=== PATIENT | female | born 1940 | race Caucasian/White ===

== ENCOUNTER → 2021-08-03 | Outpatient (CLI) | payer MEDICARE ==
[2021-08-03 09:03] LABS: BASOPHILS ABSOLUTE AUTO 0.04 K/mm3 (0.00-0.23); BASOPHILS PERCENT AUTO 0 % (0-2); EOSINOPHILS ABSOLUTE AUTO 0.05 K/mm3 (0.00-0.68); EOSINOPHILS PERCENT AUTO 0 % (0-6); Hematocrit 38.3 % (33.0-51.0); Hemoglobin 12.4 g/dL (11.5-16.0); IMMATURE GRAN ABSOLUTE AUTO 0.05 K/mm3 (0.00-0.10); IMMATURE GRAN PERCENT AUTO 0 % (0-1); LYMPHOCYTES ABSOLUTE AUTO 0.93 K/mm3 (0.84-5.20); LYMPHOCYTES PERCENT AUTO 8 % (21-46); MONOCYTES ABSOLUTE AUTO 0.95 K/mm3 (0.16-1.47); MONOCYTES PERCENT AUTO 8 % (4-13); Mean Corpuscular HGB 29.2 pg (26.0-34.0); Mean Corpuscular HGB Conc 32.4 g/dL (31.5-36.5); Mean Corpuscular Volume 90 fL (80-100); Mean Platelet Volume 9.7 fL (9.1-12.4); NEUTROPHILS PERCENT AUTO 83 % (41-73); Platelet Count 346 K/mm3 (150-400); RDW Coefficient Variation 14.3 % (11.7-14.2); RDW Standard Deviation 47.1 fL (35.1-46.3); Red Blood Cell Count 4.24 M/mm3 (3.80-5.20); White Blood Cell Count 11.92 K/mm3 (4.00-11.30)
[2021-08-03 09:18] LABS: Alanine Aminotransfer (ALT/SGP 42 U/L (12-78); Albumin, Blood 3.1 g/dL (3.4-5.0); Albumin/Globulin Ratio 0.9 (0.8-1.8); Alk Phos 98 U/L (40-126); Anion Gap 9 mmol/L (6-16); Aspartate Aminotrans (AST/SGOT 49 U/L (12-37); Bilirubin, Total 0.3 mg/dL (0.1-1.0); Blood Urea Nitrogen 16 mg/dL (8-24); Bun/Creatinine Ratio 23.5 (12.0-20.0); CO2, Blood 29 mmol/L (21-32); Calcium, Blood 9.2 mg/dL (8.5-10.1); Chloride, Blood 100 mmol/L (98-108); Creatinine, Blood 0.68 mg/dL (0.40-1.00); Globulin, Blood 3.4 g/dL (2.2-4.0); Glomerular Filtration Rate >60 (60-); Glucose, Blood 115 mg/dL (70-99); Potassium, Blood 4.6 mmol/L (3.5-5.5); Sodium, Blood 138 mmol/L (136-145); Total Protein, Blood 6.5 g/dL (6.4-8.2)
== END | disposition home or self-care (01) ==
LOC: LAB SHORT 08:58
PROVIDERS: Physician Assistant
DX: N39.0 Urinary tract infection, site not specified (principal); R32 Unspecified urinary incontinence
CPT/HCPCS: 80053; 85025; 87077; 87086; 87186

== ENCOUNTER → 2021-08-18 | Outpatient (CLI) | payer MEDICARE ==
[~2021-08-18] MED LIST: Aspir 8181 MG; CEFP200 PO; Haloperidol5 MG
== END | disposition home or self-care (01) ==
LOC: LAB SHORT 10:46
DX: N39.0 Urinary tract infection, site not specified (principal)
CPT/HCPCS: 87077; 87086; 87186

== ENCOUNTER 2021-08-21 07:13 | Emergency (ER) | payer MEDICARE ==
[~2021-08-21] VITALS: Ht 165.1 cm; Wt 52.2 kg
[2021-08-21] MEDS ORDERED: Haloperidol5 MG (07:56)
[2021-08-21] MEDS ORDERED: Aspir 8181 MG (07:57)
[2021-08-21 08:18] LABS: Source, Urine Foley catheter
[2021-08-21 08:45] LABS: Appearance, Urine Hazy (Clear); Bilirubin, Urine Neg (Neg); Blood, Urine 5+ (Neg); Glucose Qualitative, Urine Neg (Neg); Ketones, Urine Neg (Neg); Leukocyte Esterase, Urine 2+ (Neg); Nitrite, Urine Neg (Neg); Protein, Urine 4+ (Neg); Urobilinogen, Urine NORM (Normal); pH, Urine 6.5 (5.0-8.0)
[2021-08-21 08:48] LABS: Red Blood Cells, Urine TNTC /hpf (0-2); White Blood Cells, Urine 50-100 /hpf (0-5)
[2021-08-21 08:49] LABS: Bacteria Many /hpf; Mucus Light (0-Heavy); Squamous Epithelial Cells Rare /hpf (Few)
[2021-08-21 08:51] LABS: Color, Urine Red (P-Yellow)
[2021-08-21] MEDS ORDERED: CEFP200 PO (09:00)
== END 2021-08-21 09:25 | disposition home or self-care (01) ==
LOC: ER 07:13
PROVIDERS: Emergency Medicine
DX: R31.9 Hematuria, unspecified (principal); N39.0 Urinary tract infection, site not specified; F20.9 Schizophrenia, unspecified; Z79.899 Other long term (current) drug therapy; Z79.82 Long term (current) use of aspirin; Z96.0 Presence of urogenital implants
CPT/HCPCS: 81001

== ENCOUNTER 2021-09-21 15:10 | Inpatient (IN) | payer MEDICARE ==
[~2021-09-21] VITALS: Ht 165.1 cm; Wt 57.5 kg
[~2021-09-21 15:10] MED LIST changes: -Aspir 8181 MG; +Aspir 8181 MG PO; -Haloperidol5 MG; +Haloperidol5 MG PO
[2021-09-21 17:15] LABS: BASOPHILS PERCENT AUTO 1 % (0-2); EOSINOPHILS ABSOLUTE AUTO 0.18 K/mm3 (0.00-0.68); EOSINOPHILS PERCENT AUTO 1 % (0-6); Hematocrit 43.2 % (33.0-51.0); Hemoglobin 13.5 g/dL (11.5-16.0); IMMATURE GRAN ABSOLUTE AUTO 0.09 K/mm3 (0.00-0.10); IMMATURE GRAN PERCENT AUTO 1 % (0-1); LYMPHOCYTES ABSOLUTE AUTO 1.89 K/mm3 (0.84-5.20); LYMPHOCYTES PERCENT AUTO 10 % (21-46); MONOCYTES ABSOLUTE AUTO 1.51 K/mm3 (0.16-1.47); MONOCYTES PERCENT AUTO 8 % (4-13); Mean Corpuscular HGB 28.5 pg (26.0-34.0); Mean Corpuscular HGB Conc 31.3 g/dL (31.5-36.5); Mean Corpuscular Volume 91 fL (80-100); Mean Platelet Volume 9.8 fL (9.1-12.4); NEUTROPHILS ABSOLUTE AUTO 15.34 K/mm3 (1.96-9.15); NEUTROPHILS PERCENT AUTO 80 % (41-73); Platelet Count 368 K/mm3 (150-400); RDW Coefficient Variation 14.2 % (11.7-14.2); RDW Standard Deviation 47.2 fL (35.1-46.3); Red Blood Cell Count 4.74 M/mm3 (3.80-5.20); White Blood Cell Count 19.11 K/mm3 (4.00-11.30)
[2021-09-21 17:40] LABS: Albumin, Blood 3.6 g/dL (3.4-5.0); Albumin/Globulin Ratio 0.9 (0.8-1.8); Bilirubin, Total 0.3 mg/dL (0.1-1.0); Bun/Creatinine Ratio 36.1 (12.0-20.0); Calcium, Blood 9.3 mg/dL (8.5-10.1); Creatinine, Blood 0.53 mg/dL (0.40-1.00); Total Protein, Blood 7.6 g/dL (6.4-8.2)
[2021-09-21 21:01] LABS: Influenza A, PCR NEGATIVE (NEGATIVE); Influenza B, PCR NEGATIVE (NEGATIVE); Resp Syncytial Virus, PCR NEGATIVE (NEGATIVE); SARS-Cov-2 (COVID-19) PCR, MMC NEGATIVE (NEGATIVE)
--- NOTE | 2021-09-21 21:53 | NUR ---
PT ARRIVED TO ROOM 213 FROM ER. PT A/O X1. PT HAS HX DEMENTIA PER REP, IS UNABLE TO VERIFY MED OR HEALTH HX. MOVES ALL EXT, DENIES N/T TO EXT. PT DENIES PAIN W/PALP OR MVMT TO TO L HIP, BUT DOES REPORT PAIN WHEN BEARING WEIGHT. 2LO2 PLACED IN ER, SATS >90%, PT DENIES SOB. SKIN CLEAN/DRY W/FLAKING ON LEGS. PROTECTIVE MEPILEX PLACED ON COCCYX. NEW ATTENDS PLACED. PT ORIENTEDTO ROOM/CALL LIGHT, BED ALARM ON. SURGICAL CLEANSING PACKET COMPLETED.
[2021-09-22 04:41] LABS: BASOPHILS ABSOLUTE AUTO 0.07 K/mm3 (0.00-0.23); BASOPHILS PERCENT AUTO 1 % (0-2); EOSINOPHILS ABSOLUTE AUTO 0.17 K/mm3 (0.00-0.68); EOSINOPHILS PERCENT AUTO 1 % (0-6); Hematocrit 42.1 % (33.0-51.0); Hemoglobin 12.9 g/dL (11.5-16.0); IMMATURE GRAN ABSOLUTE AUTO 0.03 K/mm3 (0.00-0.10); IMMATURE GRAN PERCENT AUTO 0 % (0-1); LYMPHOCYTES ABSOLUTE AUTO 2.13 K/mm3 (0.84-5.20); LYMPHOCYTES PERCENT AUTO 17 % (21-46); MONOCYTES ABSOLUTE AUTO 1.42 K/mm3 (0.16-1.47); MONOCYTES PERCENT AUTO 11 % (4-13); Mean Corpuscular HGB 28.1 pg (26.0-34.0); Mean Corpuscular HGB Conc 30.6 g/dL (31.5-36.5); Mean Corpuscular Volume 92 fL (80-100); Mean Platelet Volume 9.9 fL (9.1-12.4); NEUTROPHILS PERCENT AUTO 70 % (41-73); Platelet Count 338 K/mm3 (150-400); RDW Coefficient Variation 14.3 % (11.7-14.2); RDW Standard Deviation 48.1 fL (35.1-46.3); Red Blood Cell Count 4.59 M/mm3 (3.80-5.20); White Blood Cell Count 12.72 K/mm3 (4.00-11.30)
[2021-09-22 05:00] LABS: Albumin, Blood 3.2 g/dL (3.4-5.0); Albumin/Globulin Ratio 0.8 (0.8-1.8); Bilirubin, Total 0.4 mg/dL (0.1-1.0); Bun/Creatinine Ratio 28.3 (12.0-20.0); Creatinine, Blood 0.64 mg/dL (0.40-1.00); Magnesium, Blood 2.4 mg/dL (1.6-2.4); Total Protein, Blood 7.2 g/dL (6.4-8.2)
--- NOTE | 2021-09-22 06:28 | NUR ---
PT VSS SINCE ARRIVING TO FLOOR. PT PLEASANTLY CONFUSED, ORIENTED TO SELF AND FOLLOWING SOME DIRECTIONS; REORIENTED PRN T/O NIGHT. PAIN MGD PER EMAR. PT NPO POST MIDNIGHT, IVF CONT PER ORDERS. BED ALARM ON FOR SAFETY.
--- NOTE | 2021-09-22 10:15 | NUR ---
CALL PLACED TO SON ANGEL TO INFORM OF PATIENT GOING TO OR FOR SURGERY. LEFT A MESSAGE.
--- NOTE | 2021-09-22 11:24 | NUR ---
PATIENT TO DAY SURGERY VIA BED WITH [facility]ARENCE RN'S.
--- NOTE | 2021-09-22 12:07 | NUR ---
PT BEEN TO [facility] BY BED WITH OTHER ASSIST. PT REPORTED TO BE IN ATTENDS. PT REPORTED TO BE NPO. PT REPORTED TO HAVE HX OF DEMENTIA AND THAT HER SON ANGEL IN POA/PERSON TO CALL FOR CONSENT. History, Chart, Medications and Allergies reviewed before start of procedure. LUNGS SOUNDS CLEAR WHEN ARRIVED TO UNIT BUT THEN PT APPEARED TO HAVE SLIGHT WHEEZE. Pre-Op teaching done. Pt verbalizes understanding.
--- NOTE | 2021-09-22 14:15 | NUR ---
PATIENT RETURNED TO ROOM FROM PACU. LONG, ON 4L O2 VIS NC, SATS >90%. PATIENT DIESNIES PAIN, HAS FULL SENSATION TO BOTH LEGS, WIGGLES ALL TOES. X1 AQUACEL IN PLACE TO L HIP, C/D/I. CALL LIGHT IN REACH, BED ALARM ON.
--- NOTE | 2021-09-22 19:42 | NUR ---
SHIFT SUMMARY NO ACUTE CHANGES SINCE ARRIVAL FROM SURGERY. POD 0 L HIP PINNING, AQUACEL DRESSING IN PLACE, C/D/I. REMAINS INCONTINENT OF URINE, [facility] PATIENT REFUSED TO WORK WITH PHYSICAL THERAPY THIS AFTERNOON. CONTINUES TO CALL OUT, DOES NOT USE CALL LIGHT APPROPRIATELY. REFUSED MEAL TRAY AFTER CALLING OUT "IM STARVING", "I NEED FOOD". MEDICATED X1 FOR PAIN. CONTACTED DR ESTEBAN FOR ORAL PAIN MEDICATIN, AWAITING ORDERS. WILL REPORT TO ONCOMING RN.
--- NOTE | 2021-09-22 20:48 | NUR ---
HOME MEDS: PT SON BRENNAN IN TO VISIT PT. HOME MEDS REVIEWED AND CLARIFIED. PER SON, PT TAKES 10MG HALDOL DAILY AT 1700. SON ALSO REQUESTED UA TO BE ORDERED. STATES PT AHS A LONG HX OF CHRONIC UTI'S. STATES PT BECOMES MORE CONFUSED WHEN SHE HAS AN ACTIVE UTI. CALL PLACED TO DR OCHOA, MEDS AND SON'S CONCERNS REVIEWED. NEW ORDERS REC.
[2021-09-23 04:54] LABS: BASOPHILS ABSOLUTE AUTO 0.02 K/mm3 (0.00-0.23); BASOPHILS PERCENT AUTO 0 % (0-2); EOSINOPHILS ABSOLUTE AUTO 0.01 K/mm3 (0.00-0.68); EOSINOPHILS PERCENT AUTO 0 % (0-6); Hematocrit 35.9 % (33.0-51.0); IMMATURE GRAN ABSOLUTE AUTO 0.04 K/mm3 (0.00-0.10); IMMATURE GRAN PERCENT AUTO 0 % (0-1); LYMPHOCYTES ABSOLUTE AUTO 1.12 K/mm3 (0.84-5.20); LYMPHOCYTES PERCENT AUTO 9 % (21-46); MONOCYTES PERCENT AUTO 8 % (4-13); Mean Corpuscular HGB 28.2 pg (26.0-34.0); Mean Corpuscular HGB Conc 30.6 g/dL (31.5-36.5); Mean Corpuscular Volume 92 fL (80-100); Mean Platelet Volume 9.9 fL (9.1-12.4); NEUTROPHILS ABSOLUTE AUTO 10.09 K/mm3 (1.96-9.15); NEUTROPHILS PERCENT AUTO 82 % (41-73); Platelet Count 303 K/mm3 (150-400); RDW Coefficient Variation 14.4 % (11.7-14.2); RDW Standard Deviation 48.4 fL (35.1-46.3); White Blood Cell Count 12.28 K/mm3 (4.00-11.30)
[2021-09-23 05:11] LABS: Bun/Creatinine Ratio 25.4 (12.0-20.0); Calcium, Blood 8.9 mg/dL (8.5-10.1); Creatinine, Blood 0.63 mg/dL (0.40-1.00); Potassium, Blood 3.9 mmol/L (3.5-5.5)
--- NOTE | 2021-09-23 06:25 | NUR ---
RFID TECHNICIAN SUMMARY POD 0 L HIP PINNING. AQUACEL DRESSING TO L HIP HAS SMALL SPOT OF DRAINAGE IN CENTER OF DRESSING THAT HAS NOT INCREASED THROUGH THE NIGHT. MEDICATED FOR PAIN X1 WITH DILAUDID WITH GOOD CONTROL. PT HAS BASELINE DEMENTIA AND IS QUITE CONFUSED BUT IS REDIRECTABLE AND FOLLOWS DIRECTION. PT'S SON ANGEL CAME IN TO SEE PT AT START OF SHIFT. SON ASKED FOR PT TO BE CHECKED FOR UTI IT TENDS TO EXACERBATE HER DEMENTIA. UA ORDER OBTAINED FROM DR OCHOA HOWEVER PT HAS BEEN INCONTINENT OF URINE SO UNABLE TO OBTAIN SPECIMEN THUS FAR. PT REMAINS ON 3-4L O2 VIA NC. VSS, WILL CONTINUE TO MONITOR.
[2021-09-23 11:38] LABS: Source, Urine Voided
[2021-09-23 12:47] LABS: Appearance, Urine Hazy (Clear); Bilirubin, Urine Neg (Neg); Blood, Urine 2+ (Neg); Color, Urine Yellow (P-Yellow); Glucose Qualitative, Urine Neg (Neg); Ketones, Urine Neg (Neg); Leukocyte Esterase, Urine 3+ (Neg); Nitrite, Urine Neg (Neg); Protein, Urine 1+ (Neg); Urobilinogen, Urine NORM (Normal)
[2021-09-23 13:08] LABS: Bacteria Many /hpf; Squamous Epithelial Cells Few /hpf (Few); White Blood Cells, Urine TNTC /hpf (0-5)
[2021-09-23] MEDS ORDERED: CEFP200 PO (14:38)
[2021-09-23] MEDS ORDERED: ACET500 PO (14:51)
--- NOTE | 2021-09-23 17:45 | NUR ---
DISCHARGE NOTE: PATIENT DISCHARGED AT 1615 TODAY 09/23/21. PATIENT AND PATIENTS SON (WHO IS ALSO A CAREGIVER) WAS EDUCATED ON DISCHARGE INSTRUCTIONS. BOTH VERBALIZED UNDERSTANDING OF INSTRUCTIONS. IV WAS TAKEN OUT AND WNL. ABX WAS FAXED TO [facility] WHICH IS THE ONE HER AND THE SON PREFERRED WHICH SON IS AWARE. PAIN IS MANAGED WITH PO TYLENOL. SHE WILL BE VISITED WITH HOME HEALTH. PATIENT IS DRESSED AND HAS PERSONAL ITEMS GATHERED IN BAGS. LEFT HIP HAS A NEW AQUACEL THAT IS C/D/I. DENIES NUMBNESS OR TINGLING. TOLERATING PO INTAKE AND IS VOIDING. PATIENT WAS WHEELCHAIRED OUT TO SON'S CAR TO BE TAKEN HOME.
== END 2021-09-23 16:18 | disposition home or self-care (01) | DRG 481 ==
LOC: ER 15:10 → SURS 15:11
PROVIDERS: Internal Medicine; Orthopaedic Surgery; Physician Assistant; ADMIT Internal Medicine
PROC: 0QS734Z Reposition Left Upper Femur with Internal Fixation Device, Percutaneous Approach (ICD-10-PCS; principal; 2021-09-22 12:00)
DX: S72.002A Fracture of unspecified part of neck of left femur, initial encounter for closed fracture (principal); G93.49 Other encephalopathy; N39.0 Urinary tract infection, site not specified; Z20.822 Contact with and (suspected) exposure to COVID-19; B96.20 Unspecified Escherichia coli [E. coli] as the cause of diseases classified elsewhere; B96.5 Pseudomonas (aeruginosa) (mallei) (pseudomallei) as the cause of diseases classified elsewhere; J44.9 Chronic obstructive pulmonary disease, unspecified; F03.90 Unspecified dementia, unspecified severity, without behavioral disturbance, psychotic disturbance, mood disturbance, and anxiety; F31.9 Bipolar disorder, unspecified; F20.9 Schizophrenia, unspecified; Z96.641 Presence of right artificial hip joint; Z96.652 Presence of left artificial knee joint; Z79.82 Long term (current) use of aspirin; Z79.899 Other long term (current) drug therapy; Z87.891 Personal history of nicotine dependence; W18.30XA Fall on same level, unspecified, initial encounter
CPT/HCPCS: 0241U; 36415; 71045; 73502; 80048; 80053; 81001; 83605; 83735; 85025; 87077; 87086; 87186; 93005; 93010; 94640; 94664; 94760; 96361; 96374; 96376; 97162; 97166; 97530; 99285-25; A9270; C1713; C1769; G0378; J0690; J0696; J1100; J1170; J2405; J2704; J3010; J7030; J7120

== ENCOUNTER → 2021-11-01 | Outpatient (CLI) | payer MEDICARE ==
[~2021-11-01] MED LIST changes: +ACET500 PO
[2021-11-01 13:14] LABS: Source, Urine Clean Catch
[2021-11-01 14:16] LABS: Appearance, Urine Clear (Clear); Bilirubin, Urine Neg (Neg); Blood, Urine Neg (Neg); Color, Urine Yellow (P-Yellow); Glucose Qualitative, Urine Neg (Neg); Ketones, Urine Neg (Neg); Leukocyte Esterase, Urine 2+ (Neg); Nitrite, Urine Neg (Neg); Protein, Urine Neg (Neg); Urobilinogen, Urine NORM (Normal); pH, Urine 6.5 (5.0-8.0)
[2021-11-01 14:50] LABS: Bacteria Mod /hpf; Red Blood Cells, Urine 0-2 /hpf (0-2); Squamous Epithelial Cells Few /hpf (Few)
== END | disposition home or self-care (01) ==
LOC: LAB SHORT 12:55
PROVIDERS: Physician Assistant
DX: N39.0 Urinary tract infection, site not specified (principal)
CPT/HCPCS: 81001; 87086

== ENCOUNTER 2021-12-19 09:42 | Inpatient (IN) | payer MEDICARE ==
[~2021-12-19] VITALS: Ht 165.1 cm; Wt 54.2 kg
[2021-12-19 10:19] LABS: BASOPHILS ABSOLUTE AUTO 0.04 K/mm3 (0.00-0.23); BASOPHILS PERCENT AUTO 0 % (0-2); EOSINOPHILS ABSOLUTE AUTO 0.22 K/mm3 (0.00-0.68); EOSINOPHILS PERCENT AUTO 1 % (0-6); Hematocrit 43.7 % (33.0-51.0); Hemoglobin 13.6 g/dL (11.5-16.0); IMMATURE GRAN ABSOLUTE AUTO 0.11 K/mm3 (0.00-0.10); IMMATURE GRAN PERCENT AUTO 1 % (0-1); LYMPHOCYTES ABSOLUTE AUTO 0.88 K/mm3 (0.84-5.20); LYMPHOCYTES PERCENT AUTO 5 % (21-46); MONOCYTES ABSOLUTE AUTO 1.91 K/mm3 (0.16-1.47); MONOCYTES PERCENT AUTO 10 % (4-13); Mean Corpuscular HGB 27.6 pg (26.0-34.0); Mean Corpuscular HGB Conc 31.1 g/dL (31.5-36.5); Mean Corpuscular Volume 89 fL (80-100); Mean Platelet Volume 10.6 fL (9.1-12.4); NEUTROPHILS PERCENT AUTO 84 % (41-73); Platelet Count 295 K/mm3 (150-400); RDW Coefficient Variation 16.1 % (11.7-14.2); RDW Standard Deviation 52.5 fL (35.1-46.3); Red Blood Cell Count 4.92 M/mm3 (3.80-5.20); White Blood Cell Count 19.36 K/mm3 (4.00-11.30)
[2021-12-19 10:25] LABS: Base Excess Venous 3.5 mmol/L; pH Blood Venous 7.42 (7.34-7.37)
[2021-12-19 10:26] LABS: Source, Urine Straight Cath
[2021-12-19 10:36] LABS: Appearance, Urine Cloudy (Clear); Bilirubin, Urine Neg (Neg); Blood, Urine 4+ (Neg); Color, Urine Yellow (P-Yellow); Glucose Qualitative, Urine Neg (Neg); Ketones, Urine Neg (Neg); Leukocyte Esterase, Urine 3+ (Neg); Nitrite, Urine Pos (Neg); Protein, Urine 3+ (Neg); Urobilinogen, Urine NORM (Normal)
[2021-12-19 10:40] LABS: Albumin, Blood 2.8 g/dL (3.4-5.0); Albumin/Globulin Ratio 0.6 (0.8-1.8); Bilirubin, Total 0.6 mg/dL (0.1-1.0); Bun/Creatinine Ratio 29.3 (12.0-20.0); Calcium, Blood 9.8 mg/dL (8.5-10.1); Creatinine, Blood 1.33 mg/dL (0.40-1.00); Globulin, Blood 4.7 g/dL (2.2-4.0); Magnesium, Blood 2.7 mg/dL (1.6-2.4); Potassium, Blood 3.8 mmol/L (3.5-5.5); Total Protein, Blood 7.5 g/dL (6.4-8.2)
[2021-12-19 10:55] LABS: White Blood Cells, Urine TNTC /hpf (0-5)
[2021-12-19 10:56] LABS: Bacteria Many /hpf; Squamous Epithelial Cells Rare /hpf (Few)
[2021-12-19 11:21] LABS: Influenza A, PCR NEGATIVE (NEGATIVE); Influenza B, PCR NEGATIVE (NEGATIVE); Resp Syncytial Virus, PCR NEGATIVE (NEGATIVE); SARS-Cov-2 (COVID-19) PCR, MMC NEGATIVE (NEGATIVE)
[2021-12-19] MEDS ORDERED: HALO5 PO (14:51)
--- NOTE | 2021-12-19 23:38 | NUR ---
ADMIT NOTE HANDOFF RECEIVED FROM ALMOND PAN FINISHER MIKE. PT ARRIVED TO FLOOR VIA GURNEY. PERSONAL POSSESSIONS WITH PT. IV FLUID INFUSING ORDERED. PT IS CONFUSED. CALL BUTTON WITHIN REACH. BED ALARM IS ACTIVE.
--- NOTE | 2021-12-20 04:39 | NUR ---
SHIFT SUMMARY ADMITTED FOR UTI/SEPSIS. FULL CODE. KCL W/NS INFUSING ORDERED. ACHS CHEMSTICKS. I DID SPEAK WITH HER SON THAT CARES FOR HER. HE INFORMED ME THAT HER ONLY MEDICATION IS HALOPERIDOL AT THIS TIME. THE MED REC IS CORRECT. SHE IS CONFUSED. SHE HAS HX OF SCHIZOPHRENIA, BIPOLAR, AND DEMENTIA. POSITIVE BLOOD CULTURES THIS SHIFT: GRAM NEGATIVE BACILLI. I DID INFORM THE HOSPITALIST OF THIS RESULT AND OF THE SCHEDULED LEVAQUIN. NO NEW ORDERS. SHE IS INCONTINENT. BED ALARM IS ON. SON INFORMED ME THAT SHE HAS BEEN TOO WEAK TO WALK W/FWW LAST FEW DAYS AND HER APPETITE HAS BEEN POOR.
[2021-12-20 05:42] LABS: Albumin, Blood 2.1 g/dL (3.4-5.0); Anion Gap 4 mmol/L (6-16); Blood Urea Nitrogen 40 mg/dL (8-24); Bun/Creatinine Ratio 31.2 (12.0-20.0); CO2, Blood 25 mmol/L (21-32); Calcium, Blood 8.8 mg/dL (8.5-10.1); Chloride, Blood 120 mmol/L (98-108); Creatinine, Blood 1.28 mg/dL (0.40-1.00); Glomerular Filtration Rate 42 (60-); Glucose, Blood 113 mg/dL (70-99); Phosphorus, Blood 3.1 mg/dL (2.5-4.9); Potassium, Blood 3.6 mmol/L (3.5-5.5); Sodium, Blood 149 mmol/L (136-145)
--- NOTE | 2021-12-20 17:39 | NUR ---
PATIENT IS ALERT AND ORIENTED TO SELF, FOLLOWING DIRECTIONS AND MAKING HER NEEDS KNOWN. PATIENT DOES NOT BELIEVE THAT SHE HAS A UTI OR KNOW WHY SHE WAS BROUGHT TO THE ER. SHE YELLS OUT "NURSE" WHEN SHE WANTS SOMETHING. SHE HAS ASKED FOR ICE CREAM AND DIET SODA A COUPLE TIMES THIS SHIFT. POOR INTAKE, DOESNT TOUCH MUCH OF HER MEALS. WILL CONTINUE TO MONITOR
--- NOTE | 2021-12-20 21:37 | NUR ---
WHEEZING - NOTIFIED PROVIDER DURING ASSESSMENT I NOTICED WHEEZING IN THE PT'S UPPER LOBES. I CALLED NANETTE FROM RT WHO RECOMMENDED I CALL THE DOCTOR AND ASK FOR A NEBULIZER. CALLED DR. FRANCO WHO ORDERED DUONEB Q6. I NOTIFIED NANETTE FROM RT WHO SAID HE WOULD ENTER IN THE ORDER AND ADMINISTER THE TREATMENT.
--- NOTE | 2021-12-20 23:14 | NUR ---
SHIFT SUMMARY PT C/O DIFFICULTY BREATHING. ASSESSED WHEEZING IN UPPER LOBES BILATERALLY, CALLED NANETTE AT [facility] WHO RECOMMENDED DUONEB Q6. CALLED HOSPITALIST WHO AGREED AND PLACED THE ORDER, PT RECIEVED HER 1ST TREATMENT TONIGHT. PT ALSO C/O SIGNIFICANT LEG WEAKNESS, WROTE PROBLEM ON BOARD AND WILL INFORM DAY NURSE. PT NOW SLEEPING COMFORTABLY. PT IS AOX1 AND COOPERATIVE WITH CARE.
[2021-12-21 07:20] LABS: Anion Gap 6 mmol/L (6-16); Blood Urea Nitrogen 31 mg/dL (8-24); Bun/Creatinine Ratio 29.2 (12.0-20.0); CO2, Blood 24 mmol/L (21-32); Calcium, Blood 8.2 mg/dL (8.5-10.1); Chloride, Blood 118 mmol/L (98-108); Creatinine, Blood 1.06 mg/dL (0.40-1.00); Glomerular Filtration Rate 52 (60-); Glucose, Blood 95 mg/dL (70-99); Phosphorus, Blood 2.2 mg/dL (2.5-4.9); Potassium, Blood 3.6 mmol/L (3.5-5.5); Sodium, Blood 148 mmol/L (136-145)
[2021-12-21 09:00] LABS: BASOPHILS ABSOLUTE AUTO 0.02 K/mm3 (0.00-0.23); BASOPHILS PERCENT AUTO 0 % (0-2); EOSINOPHILS ABSOLUTE AUTO 0.13 K/mm3 (0.00-0.68); EOSINOPHILS PERCENT AUTO 1 % (0-6); Hematocrit 39.8 % (33.0-51.0); Hemoglobin 12.1 g/dL (11.5-16.0); IMMATURE GRAN ABSOLUTE AUTO 0.13 K/mm3 (0.00-0.10); IMMATURE GRAN PERCENT AUTO 1 % (0-1); LYMPHOCYTES PERCENT AUTO 9 % (21-46); MONOCYTES ABSOLUTE AUTO 0.96 K/mm3 (0.16-1.47); MONOCYTES PERCENT AUTO 8 % (4-13); Mean Corpuscular HGB 27.9 pg (26.0-34.0); Mean Corpuscular HGB Conc 30.4 g/dL (31.5-36.5); Mean Corpuscular Volume 92 fL (80-100); NEUTROPHILS ABSOLUTE AUTO 9.37 K/mm3 (1.96-9.15); NEUTROPHILS PERCENT AUTO 81 % (41-73); Platelet Count 279 K/mm3 (150-400); RDW Coefficient Variation 16.5 % (11.7-14.2); RDW Standard Deviation 56.6 fL (35.1-46.3); Red Blood Cell Count 4.34 M/mm3 (3.80-5.20); White Blood Cell Count 11.61 K/mm3 (4.00-11.30)
--- NOTE | 2021-12-21 19:14 | NUR ---
SHIFT SUMMARY PTN 81-YEAR-OLD, A&O X1. LIGHTS UP WHEN SON CALLS. FULL CODE. PTN BEDREST, 1-2 PERSON ASSIST. PERIPHERAL IV R HAND, PATENT. 2L O2 CONTINUOUS. PTN VERY WEAK. ADA DIET, CBGS AC/HS. INCONTINENT. SEEN THIS SHIFT BY RT WHO CHANGED HER NEBULIZER TREATMENT TO PRN, NO WHEEZING HEARD. PT ALSO EVALUATED PTN, PTN NOT INTERESTED. PTN DEMANDING AND CALLING OUT TO NURSE OFTEN, WANTING REPOSITIONED AND ASKING FOR SNACKS. REDIRECTABLE. CONTINUE TO FOLLOW.
--- NOTE | 2021-12-22 01:46 | NUR ---
RE: PSYCHIATRIC CONSULT I DO NOT SEE AN ORDER FOR PSYCHIATRIC CONSULT ENTERED IN [place]. I DO NOT KNOW IF DR. COLINDRES HAS RECEIVED A FACE SHEET. I WILL INFORM DAY RN.
--- NOTE | 2021-12-22 04:22 | NUR ---
SHIFT SUMMARY PT AOX1 AND COOPERATIVE WITH CARE. EARLY IN THE SHIFT PT C/O PAIN ON HER BUTT. WE REPOSITIONED HER TO COMFORT. NO WHEEZING WAS HEARD IN PT'S LUNGS, BUT THE BASES NOW SOUND COARSE AND SHE HAS AN OCCASIONAL PRODUCTIVE COUGH. PT FREQUENTLY CALLED AT THE START OF THE SHIFT FOR POSITIONING AND SNACKS, AND THEN SLEPT COMFORTABLY THROUGHOUT THE NIGHT. PT REMAINS VERY WEAK, UNABLE TO REPOSITION HERSELF IN BED OR MOVE HER LEGS MUCH. VSS, WILL CTM.
[2021-12-22 04:49] LABS: BASOPHILS ABSOLUTE AUTO 0.04 K/mm3 (0.00-0.23); BASOPHILS PERCENT AUTO 0 % (0-2); EOSINOPHILS ABSOLUTE AUTO 0.32 K/mm3 (0.00-0.68); EOSINOPHILS PERCENT AUTO 3 % (0-6); Hematocrit 35.7 % (33.0-51.0); Hemoglobin 10.8 g/dL (11.5-16.0); IMMATURE GRAN ABSOLUTE AUTO 0.12 K/mm3 (0.00-0.10); IMMATURE GRAN PERCENT AUTO 1 % (0-1); LYMPHOCYTES ABSOLUTE AUTO 1.23 K/mm3 (0.84-5.20); LYMPHOCYTES PERCENT AUTO 12 % (21-46); MONOCYTES ABSOLUTE AUTO 0.93 K/mm3 (0.16-1.47); MONOCYTES PERCENT AUTO 9 % (4-13); Mean Corpuscular HGB 27.3 pg (26.0-34.0); Mean Corpuscular HGB Conc 30.3 g/dL (31.5-36.5); Mean Corpuscular Volume 90 fL (80-100); Mean Platelet Volume 10.2 fL (9.1-12.4); NEUTROPHILS ABSOLUTE AUTO 7.95 K/mm3 (1.96-9.15); NEUTROPHILS PERCENT AUTO 75 % (41-73); Platelet Count 257 K/mm3 (150-400); RDW Coefficient Variation 16.4 % (11.7-14.2); RDW Standard Deviation 54.7 fL (35.1-46.3); Red Blood Cell Count 3.95 M/mm3 (3.80-5.20); White Blood Cell Count 10.59 K/mm3 (4.00-11.30)
[2021-12-22 05:23] LABS: Albumin, Blood 1.9 g/dL (3.4-5.0); Anion Gap 4 mmol/L (6-16); Blood Urea Nitrogen 24 mg/dL (8-24); Bun/Creatinine Ratio 25.2 (12.0-20.0); CO2, Blood 26 mmol/L (21-32); Calcium, Blood 8.2 mg/dL (8.5-10.1); Chloride, Blood 113 mmol/L (98-108); Creatinine, Blood 0.95 mg/dL (0.40-1.00); Glomerular Filtration Rate 60 (60-); Glucose, Blood 96 mg/dL (70-99); Potassium, Blood 3.3 mmol/L (3.5-5.5); Sodium, Blood 143 mmol/L (136-145)
--- NOTE | 2021-12-22 19:18 | NUR ---
SHIFT SUMMARY PTN 81-YEAR-OLD, FULL CODE, A&O X1. PTN BEDREST, 2-PERSON ASSIST FOR WEAKNESS. PERIPHERAL IV IN R HAND DC'D THIS SHIFT, NEW PERIPHERAL IV PLACED TO L HAND. CONTINUOUS O2 AT 2L. PTN INCONTINENT, AND HAD 2 LOOSE STOOLS THIS SHIFT. ADA DIET. CBG'S AC/HS WNL THIS SHIFT. RT CALLED TO CHECK PTN AT REQUEST OF PTN FOR SOB, NO TREATMENT NEEDED. PT DID GET PTN TO SIT AT SIDE OF BED THIS SHIFT. DR MERCADO WAS IN TO SEE PTN, ORDERED CHEST X-RAY 2-VIEW, BUT WHEN PTN REFUSED TO TRANSPORT TO RADIOLOGY, ORDER WAS CHANGED TO PORTABLE 1-VIEW. CONSULT WITH DR FAULKNER ARRANGED FOR TOMORROW. PTN SON HERE FOR VISIT AND BROUGHT BRAUN'S BREAKFAST. PLAN TO DC TO SNF. WILL NEED HOME O2 EVAL PRIOR TO DC. CONTINUE TO MONITOR.
[2021-12-23 04:33] LABS: BASOPHILS ABSOLUTE AUTO 0.06 K/mm3 (0.00-0.23); BASOPHILS PERCENT AUTO 1 % (0-2); EOSINOPHILS PERCENT AUTO 3 % (0-6); Hematocrit 38.7 % (33.0-51.0); Hemoglobin 11.9 g/dL (11.5-16.0); IMMATURE GRAN ABSOLUTE AUTO 0.29 K/mm3 (0.00-0.10); IMMATURE GRAN PERCENT AUTO 3 % (0-1); LYMPHOCYTES ABSOLUTE AUTO 1.65 K/mm3 (0.84-5.20); LYMPHOCYTES PERCENT AUTO 15 % (21-46); MONOCYTES ABSOLUTE AUTO 0.76 K/mm3 (0.16-1.47); MONOCYTES PERCENT AUTO 7 % (4-13); Mean Corpuscular HGB 27.3 pg (26.0-34.0); Mean Corpuscular HGB Conc 30.7 g/dL (31.5-36.5); Mean Corpuscular Volume 89 fL (80-100); NEUTROPHILS ABSOLUTE AUTO 7.97 K/mm3 (1.96-9.15); NEUTROPHILS PERCENT AUTO 72 % (41-73); RDW Coefficient Variation 16.4 % (11.7-14.2); RDW Standard Deviation 54.2 fL (35.1-46.3); Red Blood Cell Count 4.36 M/mm3 (3.80-5.20); White Blood Cell Count 11.03 K/mm3 (4.00-11.30)
[2021-12-23 04:44] LABS: Mean Platelet Volume 10.2 fL (9.1-12.4); Platelet Count 158 K/mm3 (150-400)
[2021-12-23 04:58] LABS: Anion Gap 7 mmol/L (6-16); Blood Urea Nitrogen 18 mg/dL (8-24); CO2, Blood 24 mmol/L (21-32); Calcium, Blood 8.1 mg/dL (8.5-10.1); Chloride, Blood 113 mmol/L (98-108); Glomerular Filtration Rate 64 (60-); Glucose, Blood 90 mg/dL (70-99); Phosphorus, Blood 2.5 mg/dL (2.5-4.9); Potassium, Blood 3.8 mmol/L (3.5-5.5); Sodium, Blood 144 mmol/L (136-145)
--- NOTE | 2021-12-23 05:44 | NUR ---
Rn summary: Patient is alert to self. She has called out a few times for nurse but is not able to say what she needs. Pt has been incontinent of urine, attends in place. Patient has rested well with the bedtime serroquel. Breath sounds with some upper airway rhonchi at beginning of shift. Pt was asked to cough, to see if rhonchi it would clear. Pt did not accomplish a real cough to clear at that time. Pt remains on 2 liters O2. Chest x-ray done on day shift, results show poss atelectasis or beginning PNA. It also shows COPD. Pt shows no respiratory distress, O2 sats 95-97% on 2 liters. Pt is afebrile. Bed alarm is on. Will continue to monitor.
--- NOTE | 2021-12-23 14:37 | NUR ---
RN NOTE MS WARREN IS ALERT, ORIENTATED TO HER NAME AND TO "HOSPITAL" , DOESN'T KNOW WHICH ONE AND NOT ORIENTATED TO ATE OR WHY SHE IS IN THE HOSPITAL. SHE IS ON FALL PRECAUTIONS, BED AND CHAIR ALARMS ON. SHE HAS CALL LIGHT IN REACH BUT INSTEAD CALLS OUT FOR HELP. SHE HAS NOT TRIED TO GET OOB BY HERSELF. PT HELPED HER UP TO THE CHAIR THIS MORNING AND SHE ALMOST IMMEDIATELY REQUESTED TO GET BACK INTO BED. HER SON VISITED AND SAID HE IS EAGER TO GET HER HOME WITH HIM, AND SAID THAT HE HAS HOME HEALTH, HOSPITAL BE ETC IN PLACE. PT ON 2L NC HERE IN HOSPITAL. DENIES ANY C/O PAIN. GOOD APPETITE. INCONTINENT OF STOOL AND URINE. SACRAL AREA RED, MEPILEX APPLIED AND PT ENCOURAGED TO TURN OFF HER BACK WHEN IN BED. FRAIL SKIN INTEGRITY, BRUISING AND HEALING SCABS ON HER SKIN. BED LOW, CALL LIGHT IN REACH.
[2021-12-23] MEDS ORDERED: ALOGLIPTIN25 M7 PO (17:57)
[2021-12-23] MEDS ORDERED: AMOX875 PO (17:58)
--- NOTE | 2021-12-23 19:26 | NUR ---
DISCHARGE NOTE PLEASE SEE RN NOTE FROM 1437. DISCHARGE ORDERS WRITTEN AND PT LEFT THE UNIT IN A WHEELCHAIR FOR DISCHARGE AT 1928. HER SON CAME TO THE UNIT AND REVIEWED WRITTEN AND VERBAL DISCHARGE INSTRUCTIONS. ALL QUESTIONS ANSWERED. PT [place] [facility] [place] [facility] [place] [address]/24[facility]21. HE SAID THAT HE HAS HOME HEALTH AND HOME EQUIPMENT SET UP. PT PULSE OX IN THE 90S AFTER BEING ON ROOM AIR FOR APPROX AN HOUR PRE DISCHARGE. NO C/O SOB. NO COUGHING TODAY. PIV REMOVED IT WAS TENDER TO PT.
== END 2021-12-23 19:28 | disposition home or self-care (01) | DRG 872 ==
LOC: ER 09:42 → ERHOLD 11:09 → MEDS 11:09
PROVIDERS: Family Medicine; Student in an Organized Health Care Education/Training Program; ADMIT Internal Medicine Endocrinology, Diabetes & Metabolism
DX: A41.51 Sepsis due to Escherichia coli [E. coli] (principal); N39.0 Urinary tract infection, site not specified; F03.91 Unspecified dementia, unspecified severity, with behavioral disturbance; N17.9 Acute kidney failure, unspecified; Z16.24 Resistance to multiple antibiotics; E11.65 Type 2 diabetes mellitus with hyperglycemia; Z20.822 Contact with and (suspected) exposure to COVID-19; F25.0 Schizoaffective disorder, bipolar type; F31.9 Bipolar disorder, unspecified; M81.0 Age-related osteoporosis without current pathological fracture; Z98.890 Other specified postprocedural states; Z96.652 Presence of left artificial knee joint; Z87.891 Personal history of nicotine dependence; E86.0 Dehydration; Z86.718 Personal history of other venous thrombosis and embolism
CPT/HCPCS: 0241U; 36415; 51701; 71045; 80053; 80069; 81001; 82803; 82947; 83605; 83735; 85025; 87040; 87077; 87086; 87186; 93005; 93010; 94640; 94664; 94760; 96374-59; 96375-59; 97110; 97162; 99285-25; A9270; J0696; J1650; J1956; J2543; J3480; J7030; J7050

== ENCOUNTER → 2022-01-26 | Outpatient (CLI) | payer MEDICARE ==
[~2022-01-26] MED LIST changes: +ALOGLIPTIN25 M7 PO; +AMOCLA875 PO; +AMOX875 PO; +GUAI600T33 PO; +HALO5 PO; +PRED20 PO
[2022-01-26 12:15] LABS: Appearance, Urine Clear (Clear); Bilirubin, Urine Neg (Neg); Blood, Urine Neg (Neg); Color, Urine Yellow (P-Yellow); Glucose Qualitative, Urine Neg (Neg); Ketones, Urine Neg (Neg); Leukocyte Esterase, Urine Neg (Neg); Nitrite, Urine Pos (Neg); Protein, Urine 1+ (Neg); Urobilinogen, Urine NORM (Normal)
[2022-01-26 12:52] LABS: Bacteria Few /hpf; Red Blood Cells, Urine 0-2 /hpf (0-2); Squamous Epithelial Cells Rare /hpf (Few); White Blood Cells, Urine 0-2 /hpf (0-5)
== END | disposition home or self-care (01) ==
LOC: LAB 09:55 → LAB SHORT 09:55
PROVIDERS: Family Medicine
DX: N39.0 Urinary tract infection, site not specified (principal)
CPT/HCPCS: 81001; 87077; 87086; 87186

== ENCOUNTER → 2022-03-17 | Outpatient (CLI) | payer MEDICARE | END | disposition home or self-care (01) | LOC: LAB SHORT 19:02 | DX: N39.0 Urinary tract infection, site not specified (principal) | CPT/HCPCS: 87086 ==

== ENCOUNTER 2022-07-04 15:02 | Emergency (ER) | payer MEDICARE ==
[~2022-07-04] VITALS: Ht 165.1 cm; Wt 65.8 kg
[~2022-07-04 15:02] MED LIST changes: +IPRAT-ALBUT 0.5-3 ML; +Keflex250 MG PO
[2022-07-04 15:23] LABS: BASOPHILS ABSOLUTE AUTO 0.05 K/mm3 (0.00-0.23); BASOPHILS PERCENT AUTO 1 % (0-2); EOSINOPHILS ABSOLUTE AUTO 0.17 K/mm3 (0.00-0.68); EOSINOPHILS PERCENT AUTO 2 % (0-6); Hematocrit 41.9 % (33.0-51.0); Hemoglobin 13.2 g/dL (11.5-16.0); IMMATURE GRAN ABSOLUTE AUTO 0.04 K/mm3 (0.00-0.10); IMMATURE GRAN PERCENT AUTO 1 % (0-1); LYMPHOCYTES ABSOLUTE AUTO 1.43 K/mm3 (0.84-5.20); LYMPHOCYTES PERCENT AUTO 17 % (21-46); MONOCYTES ABSOLUTE AUTO 0.66 K/mm3 (0.16-1.47); MONOCYTES PERCENT AUTO 8 % (4-13); Mean Corpuscular HGB Conc 31.5 g/dL (31.5-36.5); Mean Corpuscular Volume 89 fL (80-100); Mean Platelet Volume 9.9 fL (9.1-12.4); NEUTROPHILS ABSOLUTE AUTO 6.21 K/mm3 (1.96-9.15); NEUTROPHILS PERCENT AUTO 73 % (41-73); Platelet Count 238 K/mm3 (150-400); RDW Coefficient Variation 15.9 % (11.7-14.2); RDW Standard Deviation 51.9 fL (35.1-46.3); Red Blood Cell Count 4.71 M/mm3 (3.80-5.20); White Blood Cell Count 8.56 K/mm3 (4.00-11.30)
[2022-07-04 15:48] LABS: Albumin, Blood 2.8 g/dL (3.4-5.0); Albumin/Globulin Ratio 0.6 (0.8-1.8); Bilirubin, Total 0.3 mg/dL (0.1-1.0); Bun/Creatinine Ratio 20.7 (12.0-20.0); Calcium, Blood 9.4 mg/dL (8.5-10.1); Creatinine, Blood 0.82 mg/dL (0.40-1.00); Globulin, Blood 4.6 g/dL (2.2-4.0); Potassium, Blood 4.2 mmol/L (3.5-5.5); Total Protein, Blood 7.4 g/dL (6.4-8.2)
[2022-07-04] MEDS ORDERED: LIDO700A20 TOP (17:14)
== END 2022-07-04 19:27 | disposition home or self-care (01) ==
LOC: ER 15:02
PROVIDERS: Emergency Medicine
DX: S39.012A Strain of muscle, fascia and tendon of lower back, initial encounter (principal); J44.9 Chronic obstructive pulmonary disease, unspecified; F03.90 Unspecified dementia, unspecified severity, without behavioral disturbance, psychotic disturbance, mood disturbance, and anxiety; W19.XXXA Unspecified fall, initial encounter; Z79.899 Other long term (current) drug therapy; Z96.643 Presence of artificial hip joint, bilateral
CPT/HCPCS: 36415; 71046; 72100; 80053; 85025; 93005; 93010; 94644; 94664; 99284-25; A9270